=== PATIENT | male | born 1940 | race Two or more races ===

== ENCOUNTER 2024-08-26 07:47 | Outpatient (CLI) | payer OTHER | END 2024-08-26 07:48 | disposition home or self-care (01) | LOC: NUCLEAR 07:47 | PROVIDERS: ATTEND Internal Medicine Hematology & Oncology | DX: C49.A2 Gastrointestinal stromal tumor of stomach (principal) | CPT/HCPCS: 78816; A9552 ==

== ENCOUNTER 2025-04-16 07:07 | Outpatient (CLI) | payer OTHER | END 2025-04-16 07:11 | disposition home or self-care (01) | LOC: TOM 07:07 | PROVIDERS: ATTEND Internal Medicine Hematology & Oncology | DX: C49.A2 Gastrointestinal stromal tumor of stomach (principal) ==